=== PATIENT | male | born 1960 | race Caucasian/White ===

== ENCOUNTER 2016-10-03 18:23 | Emergency (ER) | payer OTHER ==
--- NOTE | 2016-10-03 19:57 | ED ORDER SUMMARY ---
..... Patient: BAR TAVAREZ OrderSheet [facility] VisitID: [id number] [address] [place] [address] 56y, M Registration Date/Time: 10/03/2016 ORDER SHEET Weight: 77.1 kg (stated) Allergies: No Known Drug Allergy GENERAL ORDERS: Elbow 3 or 4V Left Urgent (18:47 10/03/2016 EKoroleva P.A.-C) (Ack 18:50 PWeiler ER Tech1) (19:08 CHagerty ER Clinical Case Manager) Sling - arm (19:29 10/03/2016 EKoroleva P.A.-C) (Ack 19:38 DDavis R.N.) (20:06 DDavis R.N.) MEDICATION ORDERS: Tylenol PO 650 mg (NOW) (18:47 10/03/2016 EKoroleva P.A.-C) (19:34 DDavis R.N.) Motrin PO 800 mg (NOW) (18:47 10/03/2016 EKoroleva P.A.-C) (19:34 DDavis R.N.) Zofran ODT PO 4 mg (NOW) (18:47 10/03/2016 EKoroleva P.A.-C) (19:34 DDavis R.N.) LET Topical 1 application (NOW) (18:47 10/03/2016 EKoroleva P.A.-C) (19:35 DDavis R.N.) LET Topical 1 application (NOW) (20:20 10/03/2016 DDavis R.N. verbal order read back to EKoroleva P.A.-C) (20:21 DDavis R.N.) IV FLUIDS: ORDER SHEET NOTES: [Electronically signed by Ludwig Marie R.N. (20:44 10/03/2016)] [Electronically signed by Corie Chawla P.A.-C (21:23 10/03/2016)] [Electronically locked/signed by Ludwig Marie R.N. (20:44 10/03/2016)]
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
--- NOTE | 2016-10-03 19:57 | ED ORDER SUMMARY ---
..... Patient: BAR TAVAREZ OrderSheet [facility] VisitID: [id number] [address] [place] [place] [address] 56y, M Registration Date/Time: 10/03/2016 ORDER SHEET Weight: 77.1 kg (stated) Allergies: No Known Drug Allergy GENERAL ORDERS: Elbow 3 or 4V Left Urgent (18:47 10/03/2016 EKoroleva P.A.-C) (Ack 18:50 PWeiler ER Tech1) (19:08 CHagerty ER Cyber Incident Handler) Sling - arm (19:29 10/03/2016 EKoroleva P.A.-C) (Ack 19:38 DDavis R.N.) (20:06 DDavis R.N.) MEDICATION ORDERS: Tylenol PO 650 mg (NOW) (18:47 10/03/2016 EKoroleva P.A.-C) (19:34 DDavis R.N.) Motrin PO 800 mg (NOW) (18:47 10/03/2016 EKoroleva P.A.-C) (19:34 DDavis R.N.) Zofran ODT PO 4 mg (NOW) (18:47 10/03/2016 EKoroleva P.A.-C) (19:34 DDavis R.N.) LET Topical 1 application (NOW) (18:47 10/03/2016 EKoroleva P.A.-C) (19:35 DDavis R.N.) LET Topical 1 application (NOW) (20:20 10/03/2016 DDavis R.N. verbal order read back to EKoroleva P.A.-C) (20:21 DDavis R.N.) IV FLUIDS: ORDER SHEET NOTES: [Electronically signed by Ludwig Marie R.N. (20:44 10/03/2016)] [Electronically signed by Corie Chawla P.A.-C (21:23 10/03/2016)] [Electronically locked/signed by Ludwig Marie R.N. (20:44 10/03/2016)]
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
--- NOTE | 2016-10-03 21:23 | ED MED RECONCILIATION SUMMARY ---
Patient: BAR TAVAREZ Medication Reconciliation Report [facility] VisitID: [id number] [address] [place] [place] [address] 56y, M Registration Date/Time: 10/03/2016 Weight: 77.1 kg Height/Length: 67 in. BMI: 26.6 ALLERGIES: No Known Drug Allergy The patient's Home Medications are listed below: NONE. The source(s) of the original Home Medication information: Not obtained. The following Medications were given to the patient in the Emergency Department: Tylenol [PO] PO 650 mg, administered: 10/03/2016 7:30:00 PM Motrin [PO] PO 800 mg, administered: 10/03/2016 7:29:00 PM Zofran ODT [PO] PO 4 mg, administered: 10/03/2016 7:31:00 PM LET [Topical] Topical 1 application, administered: 10/03/2016 7:33:00 PM LET [Topical] Topical 1 application, administered: 10/03/2016 8:19:00 PM The following Medications were prescribed to the patient: Zofran (orally disintegrating tablets) 4 mg: take 1 orally every 6 hours for 3 days as needed for nausea. Dispense twenty (20). No refill. Substitution is permissible. -- Corie Chawla, P.A.-Stephanie Motrin 800 mg tablets: take 1 tablet orally every 8 hours for 5 days, as needed for pain. Dispense fifteen (15). No refill. Substitution is permissible. -- Corie Chawla, P.A.-C Tylenol ER 650 mg (available over the counter): take 1 orally every 6 hours for 5 days, as needed for pain. Dispense fifteen (15). No refill. Substitution is permissible. -- Corie Chawla, P.A.-C Ultram 50 mg: take 1 orally every 6 hours for 3 days, as needed for pain. Dispense fifteen (15). No refills. Substitution is permissible. -- Corie Chawla, P.A.-C
--- NOTE | 2016-10-03 21:23 | ED MAR SUMMARY ---
..... Medication Administration Record [facility] [address] [place] [address] Patient: BAR TAVAREZ Visit ID: [id number] 56y, M Weight: 77.1 kg Height/Length: 67 in BMI: 26.6 ALLERGIES: No Known Drug Allergy Given 19:10/03/2016 Ludwig Marie R.N. Medication Administered: MOTRIN [PO], Dose: 800 mg Tablets PO. Medication Ordered: Motrin PO 800 mg (NOW). Given 19:10/03/2016 Ludwig Marie R.N. Medication Administered: TYLENOL [PO] (ACETAMINOPHEN), Dose: 650 mg Tablets PO. Medication Ordered: Tylenol PO 650 mg (NOW). Given :10/03/2016 Ludwig Marie R.N. Medication Administered: ZOFRAN ODT [PO] (ONDANSETRON), Dose: 4 mg Oral Disintegrating Tablets PO. Medication Ordered: Zofran ODT PO 4 mg (NOW). Given 19:10/03/2016 Ludwig Marie R.N. Medication Administered: LET [TOPICAL], Dose: 1 application Topical Solution Topical. Medication Ordered: LET Topical 1 application (NOW). Given 20:10/03/2016 Ludwig Marie R.N. Medication Administered: LET [TOPICAL], Dose: 1 application Topical Solution Topical. Medication Ordered: LET Topical 1 application (NOW).
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
--- NOTE | 2016-10-03 21:23 | ED MAR SUMMARY ---
..... Medication Administration Record [facility] [address] [address] Patient: BAR TAVAREZ Visit ID: [id number] 56y, M Weight: 77.1 kg Height/Length: 67 in BMI: 26.6 ALLERGIES: No Known Drug Allergy Given 19:10/03/2016 Ludwig Marie R.N. Medication Administered: MOTRIN [PO], Dose: 800 mg Tablets PO. Medication Ordered: Motrin PO 800 mg (NOW). Given 19:10/03/2016 Ludwig Marie R.N. Medication Administered: TYLENOL [PO] (ACETAMINOPHEN), Dose: 650 mg Tablets PO. Medication Ordered: Tylenol PO 650 mg (NOW). Given :10/03/2016 Ludwig Marie R.N. Medication Administered: ZOFRAN ODT [PO] (ONDANSETRON), Dose: 4 mg Oral Disintegrating Tablets PO. Medication Ordered: Zofran ODT PO 4 mg (NOW). Given 19:10/03/2016 Ludwig Marie R.N. Medication Administered: LET [TOPICAL], Dose: 1 application Topical Solution Topical. Medication Ordered: LET Topical 1 application (NOW). Given 20:10/03/2016 Ludwig Marie R.N. Medication Administered: LET [TOPICAL], Dose: 1 application Topical Solution Topical. Medication Ordered: LET Topical 1 application (NOW).
--- NOTE | 2016-10-03 21:23 | ED MED RECONCILIATION SUMMARY ---
Patient: BAR TAVAREZ Medication Reconciliation Report [facility] VisitID: [id number] [address] [place] [place] [address] 56y, M Registration Date/Time: 10/03/2016 Weight: 77.1 kg Height/Length: 67 in. BMI: 26.6 ALLERGIES: No Known Drug Allergy The patient's Home Medications are listed below: NONE. The source(s) of the original Home Medication information: Not obtained. The following Medications were given to the patient in the Emergency Department: Tylenol [PO] PO 650 mg, administered: 10/03/2016 7:30:00 PM Motrin [PO] PO 800 mg, administered: 10/03/2016 7:29:00 PM Zofran ODT [PO] PO 4 mg, administered: 10/03/2016 7:31:00 PM LET [Topical] Topical 1 application, administered: 10/03/2016 7:33:00 PM LET [Topical] Topical 1 application, administered: 10/03/2016 8:19:00 PM The following Medications were prescribed to the patient: Zofran (orally disintegrating tablets) 4 mg: take 1 orally every 6 hours for 3 days as needed for nausea. Dispense twenty (20). No refill. Substitution is permissible. -- Corie Chawla, P.A.-Stephanie Motrin 800 mg tablets: take 1 tablet orally every 8 hours for 5 days, as needed for pain. Dispense fifteen (15). No refill. Substitution is permissible. -- Corie Chawla, P.A.-C Tylenol ER 650 mg (available over the counter): take 1 orally every 6 hours for 5 days, as needed for pain. Dispense fifteen (15). No refill. Substitution is permissible. -- Corie Chawla, P.A.-C Ultram 50 mg: take 1 orally every 6 hours for 3 days, as needed for pain. Dispense fifteen (15). No refills. Substitution is permissible. -- Corie Chawla, P.A.-C
--- NOTE | 2016-10-03 22:17 | DIAGNOSTIC IMAGING REPORT ---
PROCEDURE: XR ELBOW 3 OR 4 VIEWS - LEFT INDICATION: TRAUMA/INJURY TECHNIQUE: Five views of the left elbow. COMPARISON: None. FINDINGS: Normal mineralization. Nondisplaced, intra-articular fracture involving the lateral corner of the radial head. There is a mildly displaced, longitudinally oriented lucency/fracture plane involving the ventral lateral aspect of the proximal ulnar metadiaphysis without visualization of the proximal aspect of the fracture. This raises the possibility of partial healing of remote subacute fracture. A joint effusion is present in an anterior sail Sign related to the acute radial head fracture. The ulnohumeral articulation is in normal alignment. The radiocapitellar articulation is also normal. No suspicious soft tissue calcifications or radiodense foreign bodies. IMPRESSION: 1. Acute, intra-articular nondisplaced radial head fracture. 2. Questionable, partial healing of subacute proximal ulnar fracture versus remote non-united fracture versus suboptimally visualized acute fracture. Correlate clinically with mechanism of injury. 3. No dislocation. 4. Reactive joint effusion.
== END 2016-10-03 20:50 | disposition home or self-care (01) ==
LOC: ED SRH 18:23
DX: S52.125A Nondisplaced fracture of head of left radius, initial encounter for closed fracture (principal); S52.002A Unspecified fracture of upper end of left ulna, initial encounter for closed fracture; S80.812A Abrasion, left lower leg, initial encounter; V18.4XXA Pedal cycle driver injured in noncollision transport accident in traffic accident, initial encounter; Y93.89 Activity, other specified; Y92.85 Railroad track as the place of occurrence of the external cause; Y99.9 Unspecified external cause status